=== PATIENT | female | born 1945 | race Caucasian/White ===

== ENCOUNTER → 2022-08-29 | Outpatient (CLI) | payer MEDICARE ==
[~2022-08-29] VITALS: Ht 162.6 cm; Wt 79.1 kg
[~2022-08-29] MED LIST: DONE10TA41 PO; ESCI10TA PO; FOLI1TAB7 PO; MEMA10TA57 PO; MTP25TSR PO; MV-M1TAB20 PO; TRAZ-227 PO
== END | disposition home or self-care (01) ==
LOC: PREOP 05:32
PROVIDERS: ATTEND Specialist
DX: Z01.818 Encounter for other preprocedural examination (principal)

== ENCOUNTER → 2022-09-01 | Day surgery (SDC) | payer MEDICARE ==
[~2022-09-01] VITALS: Ht 167.4 cm; Wt 68.2 kg
[~2022-09-01] MED LIST changes: +MIDAZOLAM 2 MG/2 ML (VERSED) VIAL ONE; +MOXIFLOXACIN OPHTH SOLN 5 MG/ML 0.3 ML SYRINGE OP ONE; +POVIDONE (BETADINE) OPHTH SOLN 5% 30 ML OP ONE; +TIMOLOL 0.5% (CATARACTS) 0.3 ML BTL OU PRN; +acetaZOLAMIDE ER 500 MG CAP (DIAMOX SEQUELS) PO ONE
[2022-09-01] MEDS: TETRACAINE 0.5% OPHTH SOLN 4 ML BTL (SINGLE DOSE ONLY) OU PRN ×4 (11:01→11:15)
[2022-09-01] MEDS: PHENYLEPHRINE 10% OPHTH (NEO-SYN) 5 ML BTL OU SCH ×3 (11:06→11:15)
[2022-09-01] MEDS: TROPICAMIDE 1% OPH SOLN (MYDRIACYL) 15 ML BTL OP SCH ×3 (11:06→11:15)
[2022-09-01 11:12] VITALS: BP 134/65
--- NOTE | 2022-09-01 11:46 | Ophthalmologist Pre-Op Note ---
Pre-Operative Progress Note H&P Reviewed The H&P was reviewed, patient examined and no changes noted. Date H&P Reviewed: Sep 01, 2022 Time H&P Reviewed: 11:46 Pre-Op Dx Cataract, Left Eye ASTRID BRAR MD Sep 01, 2022 11:46
--- NOTE | 2022-09-01 12:06 | Ophthalmology Operative Report ---
Cataract removal/placement IOL PREOPERATIVE DIAGNOSIS: Cataract Left Eye POSTOPERATIVE DIAGNOSIS: Cataract Left Eye PROCEDURE: Cataract removal and placement of posterior chamber implant, left eye SURGEON: Zenon Brar ANESTHESIA: Topical with sedation COMPLICATIONS: None ESTIMATED BLOOD LOSS: Minimal DESCRIPTION OF PROCEDURE: After proper informed consent was obtained, the patient, a 76 female, was taken to the Operating Room and the left eye was anesthetized with tetracaine. The left eye was then prepped and draped in the usual manner. A wire lid speculum was placed. A paracentesis was made at the left hand position. Preservative free lidocaine was injected into the anterior chamber followed by viscoelastic. A clear corneal incision was made in the temporal position. A capsulorrhexis was preformed and the central nuclear and cortical material were removed. The posterior capsule was polished and an Lincoln 26.5 AU00T0 was placed into the capsular bag. The residual viscoelastic was aspirated and balanced saline solution was injected into the anterior chamber. Moxifloxacin was injected into the anterior chamber. The wound was checked and found to be water tight. The patient tolerated the procedure well without complications. ZENON BRAR MD Sep 01, 2022 12:05
[2022-09-01 12:09] VITALS: BP 159/78
--- NOTE | 2022-09-01 12:17 | Anesthesia-General Post-Op ---
MAC Patient Condition Mental Status/LOC: Same as Preop Cardiovascular: Satisfactory Nausea/Vomiting: Absent Respiratory: Satisfactory Pain: Controlled Complications: Absent Post Op Complications Complications None Follow Up Care/Instructions Patient Instructions None needed. Anesthesiology Discharge Order Discharge Order Patient is doing well, no complaints, stable vital signs, no apparent adverse anesthesia problems. No complications reported per nursing. LANE [place] CRNA Sep 01, 2022 12:17
== END | disposition home or self-care (01) ==
LOC: SDC 10:42
PROVIDERS: ATTEND Specialist
DX: E11.36 Type 2 diabetes mellitus with diabetic cataract (principal); H25.9 Unspecified age-related cataract
CPT/HCPCS: 66984; V2632

== ENCOUNTER 2022-09-12 05:39 | Outpatient (CLI) | payer MEDICARE ==
[~2022-09-12 05:39] MED LIST changes: -MIDAZOLAM 2 MG/2 ML (VERSED) VIAL ONE; -MOXIFLOXACIN OPHTH SOLN 5 MG/ML 0.3 ML SYRINGE OP ONE; -POVIDONE (BETADINE) OPHTH SOLN 5% 30 ML OP ONE; -TIMOLOL 0.5% (CATARACTS) 0.3 ML BTL OU PRN; -acetaZOLAMIDE ER 500 MG CAP (DIAMOX SEQUELS) PO ONE
== END 2022-09-12 09:10 | disposition home or self-care (01) ==
LOC: PREOP 05:39
PROVIDERS: ATTEND Specialist
DX: Z01.818 Encounter for other preprocedural examination (principal)

== ENCOUNTER → 2022-09-26 | Outpatient (CLI) | payer MEDICARE | END | disposition home or self-care (01) | LOC: PREOP 05:33 | PROVIDERS: ATTEND Specialist | DX: Z01.818 Encounter for other preprocedural examination (principal) ==

== ENCOUNTER 2022-09-29 09:30 | Day surgery (SDC) | payer MEDICARE ==
[~2022-09-29] VITALS: Ht 162.6 cm; Wt 68.2 kg
[2022-09-29] MEDS: TETRACAINE 0.5% OPHTH SOLN 4 ML BTL (SINGLE DOSE ONLY) OU PRN ×4 (09:43→10:00)
[2022-09-29] MEDS ORDERED: POVIDONE (BETADINE) OPHTH SOLN 5% 30 ML OP ONE (09:45)
[2022-09-29] MEDS ORDERED: MOXIFLOXACIN OPHTH SOLN 5 MG/ML 0.3 ML SYRINGE OP ONE (09:45)
[2022-09-29] MEDS ORDERED: TIMOLOL 0.5% (CATARACTS) 0.3 ML BTL OU PRN (09:45)
[2022-09-29] MEDS: PHENYLEPHRINE 10% OPHTH (NEO-SYN) 5 ML BTL OU SCH ×3 (09:50→10:00)
[2022-09-29] MEDS: TROPICAMIDE 1% OPH SOLN (MYDRIACYL) 15 ML BTL OP SCH ×3 (09:50→10:01)
[2022-09-29 09:52] VITALS: BP 161/82
--- NOTE | 2022-09-29 10:29 | Ophthalmologist Pre-Op Note ---
Pre-Operative Progress Note H&P Reviewed The H&P was reviewed, patient examined and no changes noted. Date H&P Reviewed: Sep 29, 2022 Time H&P Reviewed: 10:29 Pre-Op Dx Cataract, Right Eye ASTRID BRAR MD Sep 29, 2022 10:29
[2022-09-29] MEDS ORDERED: MIDAZOLAM 2 MG/2 ML (VERSED) VIAL ONE (10:34)
--- NOTE | 2022-09-29 10:52 | Ophthalmology Operative Report ---
Cataract removal/placement IOL PREOPERATIVE DIAGNOSIS: Cataract Right Eye POSTOPERATIVE DIAGNOSIS: Cataract Right Eye PROCEDURE: Cataract removal and placement of posterior chamber implant, right eye SURGEON: Zenon Brar ANESTHESIA: Topical with sedation COMPLICATIONS: None ESTIMATED BLOOD LOSS: Minimal DESCRIPTION OF PROCEDURE: After proper informed consent was obtained, the patient, a 77 female, was taken to the Operating Room and the right eye was anesthetized with tetracaine. The right eye was then prepped and draped in the usual manner. A wire lid speculum was placed. A paracentesis was made at the left hand position. Preservative free lidocaine was injected into the anterior chamber followed by viscoelastic. A clear corneal incision was made in the temporal position. A capsulorrhexis was preformed and the central nuclear and cortical material were removed. The posterior capsule was polished and Lincoln 25.5 AU00T0 IOL was placed into the capsular bag. The residual viscoelastic was aspirated and balanced saline solution was injected into the anterior chamber. Moxifloxacin was injected into the anterior chamber. The wound was checked and found to be water tight. The patient tolerated the procedure well without complications. ZENON BRAR MD Sep 29, 2022 10:52
[2022-09-29 10:54] VITALS: BP 161/79
--- NOTE | 2022-09-29 11:51 | Anesthesia-General Post-Op ---
MAC Patient Condition Mental Status/LOC: Same as Preop Cardiovascular: Satisfactory Nausea/Vomiting: Absent Respiratory: Satisfactory Pain: Controlled Complications: Absent Post Op Complications Complications None Follow Up Care/Instructions Patient Instructions None needed. Anesthesiology Discharge Order Discharge Order Patient is doing well, no complaints, stable vital signs, no apparent adverse anesthesia problems. No complications reported per nursing. JESE SETH CRNA Sep 29, 2022 11:51
[2022-09-29] MEDS ORDERED: acetaZOLAMIDE ER 500 MG CAP (DIAMOX SEQUELS) PO ONE (13:00)
== END 2022-09-29 10:55 ==
LOC: SDC 09:30
PROVIDERS: ATTEND Specialist
DX: H26.9 Unspecified cataract (principal); E11.9 Type 2 diabetes mellitus without complications
CPT/HCPCS: 66984; V2632

== ENCOUNTER 2022-12-28 08:42 | Inpatient (IN) | payer MEDICARE ==
[~2022-12-28] VITALS: Ht 172 cm; Wt 88.0 kg
[2022-12-28 09:01] LABS: BASOPHILS # (AUTO) 0.1 10^3/uL (0.0-0.1); BASOPHILS % (AUTO) 1 % (0-10); EOSINOPHILS % (AUTO) 0 % (0-10); HEMATOCRIT 37 % (35-52); HEMOGLOBIN 12.2 g/dL (11.5-16.0); LYMPHOCYTES # (AUTO) 2.3 10^3/uL (1.0-4.0); LYMPHOCYTES % (AUTO) 25 % (12-44); MEAN CORPUSCULAR HEMOGLOBIN 31 pg (25-34); MEAN CORPUSCULAR HGB CONC 33 g/dL (32-36); MEAN CORPUSCULAR VOLUME 94 fL (80-99); MEAN PLATELET VOLUME 10.8 fL (9.0-12.2); MONOCYTES # (AUTO) 0.5 10^3/uL (0.0-1.0); MONOCYTES % (AUTO) 5 % (0-12); NEUTROPHILS # (AUTO) 6.3 10^3/uL (1.8-7.8); NEUTROPHILS % (AUTO) 69 % (42-75); PLATELET COUNT 254 10^3/uL (130-400); WHITE BLOOD COUNT 9.1 10^3/uL (4.3-11.0)
--- NOTE | 2022-12-28 09:09 | ED General ---
General Chief Complaint: Altered Mental Status Stated Complaint: UNRESPONSIVE Nursing Triage Note: PT ARRIVED PER EMS, PT WAS FOUND UNRESP AT [facility]. PT IS ALERT PER SELF, PT HAS HX DEMENTIA. PT A/C OFF AT FACILITY. TEMP 100.5 AT [facility]. TEMP 37.7 AT THIS X. PT HAS #18 JELCO IN AC. PT SKIN IS WARM TO TOUCH. PT DENIES PAIN AT THIS X. PT LAST KNOWN WELL TIME 1999 LAST PM Source of Information: Patient Exam Limitations: Other History of Present Illness Date Seen by Provider: Dec 28, 2022 Time Seen by Provider: 08:38 Initial Comments This 77-year-old woman presents to the emergency room via EMS from the [facility]. She was found essentially unresponsive by staff this morning. Last known well time was about 1999 last night. Apparently the air conditioning unit in her apartment is broken. EMS estimated that the temperature in her apartment was over 100 F even with the door open. Patient was very warm to the touch per staff. EMS had a temperature of 100.5. She was tachycardic with sinus tachycardia at a rate of about 140 and a blood pressure of 88/50 for EMS. Patient has dementia and does not contribute much to her history. She has no complaints at this time. She has dry mucous membranes. She is disoriented but is alert and responsive. Blood sugar for EMS was in the 200s. Blood sugar here is 173. Allergies and Home Medications Allergies Coded Allergies: No Known Drug Allergies (Unverified , 09/01/22) Patient Home Medication List Home Medication List Reviewed: Yes Cholecalciferol (Vitamin D3) (Vitamin D3) 50 Mcg (2000 Unit) Tablet, 50 MCG PO DAILY, (Reported) Entered as Reported by: GALLITO SEGURA on 12/28/22 1440 Last Action: Reviewed Donepezil HCl (Donepezil HCl) 10 Mg Tablet, 10 MG PO DAILY, (Reported) Entered as Reported by: TITUS FORDE on 08/30/22 1250 Last Action: Reviewed Escitalopram Oxalate (Lexapro) 10 Mg Tablet, 10 MG PO DAILY, (Reported) Entered as Reported by: TITUS FORDE on 08/30/22 1250 Last Action: Reviewed Eyelid Cleanser Combination #5 (Ocusoft Lid Scrub) 1 Each Med..pad, 1 EACH TP BID, (Reported) Entered as Reported by: GALLITO SEGURA on 12/28/221439 Last Action: Reviewed Memantine HCl (Memantine HCl) 10 Mg Tablet, 10 MG PO BID, (Reported) Entered as Reported by: TITUS FORDE on 08/30/221249 Last Action: Reviewed Metoprolol Succinate (Metoprolol Succinate) 25 Mg Tab.er.24h, 25 MG PO DAILY, (Reported) Entered as Reported by: TITUS FORDE on 08/30/221249 Last Action: Reviewed Multivit-Min/FA/Lycopene/Lut (Centrum Silver Tablet) 0.4 Mg-300 Mcg-250 Mcg Tablet, 1 EACH PO DAILY, (Reported) Entered as Reported by: GALLITO SEGURA on 12/28/221439 Last Action: Reviewed Phenylephrine/Dm/Acetaminop/GG (Tylenol Cold & Flu Severe Cplt) 5 Mg-10 Mg-325 Mg-200 Mg Tablet, 2 EACH PO Q4H PRN for COLD, (Reported) Entered as Reported by: GALLITO SEGURA on 12/28/221439 Last Action: Reviewed Polyvinyl Alcohol/Povidone/Pf (Refresh Classic Eye Drops) 1.4 %-0.6 % Droperette, 1 EACH OU BID, (Reported) Entered as Reported by: GALLITO SEGURA on 12/28/221439 Last Action: Reviewed Propylene Glycol (Systane Complete) 0.6 % Drops, 2 DROPS OU BID, (Reported) Entered as Reported by: GALLITO SEGURA on 12/28/221439 Last Action: Reviewed Trazodone HCl (Trazodone HCl) 100 Mg Tablet, 100 MG PO HS, (Reported) Entered as Reported by: TITUS FORDE on 08/30/221249 Last Action: Reviewed Discontinued Medications Folic Acid/Multivit-Min/Lutein (Centrum Silver Chewable Tablet) 400 Mcg-250 Mcg Tab.chew, 1 EACH PO DAILY, (Reported) Discontinued Reason: Prescription changed Entered as Reported by: TITUS FORDE on 08/30/221249 Mv-Mn/Iron/FA/Herbal Cmplx#190 (Vitamin D3 Complete Caplet) 18 Mg Iron-800 Mcg- 150 Mg Tablet, 1 EACH PO DAILY, (Reported) Discontinued Reason: Prescription changed Entered as Reported by: TITUS FORDE on 08/30/22 1250 Review of Systems Review of Systems Constitutional: see HPI EENTM: no symptoms reported Respiratory: no symptoms reported Cardiovascular: see HPI Gastrointestinal: no symptoms reported Genitourinary: no symptoms reported Musculoskeletal: no symptoms reported Skin: no symptoms reported Psychiatric/Neurological: See HPI Hematologic/Lymphatic: No Symptoms Reported Past Ozhrwrq-Xtgauf-Uvtcwg Hx Patient Social History Tobacco Use?: No Use of E-Cig and/or Vaping dev: No Alcohol Use?: No Past Medical History Surgeries: Yes Eye Surgery (Cataract), Tonsillectomy Respiratory: No Cardiac: Yes Hypertension Neurological: Yes Dementia : No Genitourinary: No Gastrointestinal: No Musculoskeletal: No Endocrine: Yes Diabetes, Non-Insulin dep HEENT: No Cancer: No Psychosocial: No Integumentary: No Physical Exam-Suspected Sepsis Physical Exam Vital Signs Vital Signs - First Documented 12/28/22 12/28/22 12/28/22 08:42 11:45 15:22 Temp 39.5 Pulse 107 Resp 11 B/P (MAP) 86/55 (65) Pulse Ox 95 O2 Delivery Room Air O2 Flow Rate 10.00 FiO2 40 Capillary Refill : Less Than 3 Seconds Blood Pressure Mean: 65 Height, Weight, BMI Height: '" Weight: lbs. oz. kg; 29.00 BMI Method: General Appearance: No Apparent Distress, WD/WN HEENT: PERRL/EOMI, Normal ENT Inspection, Other (Dry oropharynx) Neck: Normal Inspection Respiratory: No Accessory Muscle Use, No Respiratory Distress, Crackles (Right base); No Wheezing Cardiovascular: No Edema, No Murmur, Tachycardia Gastrointestinal: Non Tender, Soft; No Distended Extremity: Normal Inspection, Non Tender Neurologic/Psychiatric: Alert, No Motor/Sensory Deficits, Normal Mood/Affect, Disoriented Skin: normal color, warm/dry Focused Exam Lactate Level 12/28/22 08:45: Lactic Acid Level 2.06*H 12/28/22 10:46: Lactic Acid Level 0.73 Lactic Acid Level Progress/Results/Core Measures Suspected Sepsis SIRS Temperature: Pulse: 107 Respiratory Rate: 11 Laboratory Tests 12/28/22 08:45: White Blood Count 9.1 Blood Pressure 86 /55 Mean: 65 12/28/22 08:45: Lactic Acid Level 2.06*H 12/28/22 10:46: Lactic Acid Level 0.73 Laboratory Tests 12/28/22 08:45: Creatinine 2.03H, INR Comment 1.0, Platelet Count 254, Total Bilirubin 0.3 Results/Orders Lab Results Laboratory Tests Test 12/28/22 08:45 12/28/22 08:50 12/28/22 09:00 12/28/22 10:46 Range/Units White Blood Count 9.1 4.3-11.0 10^3/uL Red Blood Count 3.97 3.80-5.11 10^6/uL Hemoglobin 12.2 11.5-16.0 g/dL Hematocrit 37 35-52 % Mean Corpuscular Volume 94 80-99 fL Mean Corpuscular Hemoglobin 31 25-34 pg Mean Corpuscular Hemoglobin Concent 33 32-36 g/dL Red Cell Distribution Width 13.2 10.0-14.5 % Platelet Count 254 130-400 10^3/uL Mean Platelet Volume 10.8 9.0-12.2 fL Immature Granulocyte % (Auto) 0 % Neutrophils (%) (Auto) 69 42-75 % Lymphocytes (%) (Auto) 25 12-44 % Monocytes (%) (Auto) 5 0-12 % Eosinophils (%) (Auto) 0 0-10 % Basophils (%) (Auto) 1 0-10 % Neutrophils # (Auto) 6.3 1.8-7.8 10^3/uL Lymphocytes # (Auto) 2.3 1.0-4.0 10^3/uL Monocytes # (Auto) 0.5 0.0-1.0 10^3/uL Eosinophils # (Auto) 0.0 0.0-0.3 10^3/uL Basophils # (Auto) 0.1 0.0-0.1 10^3/uL Immature Granulocyte # (Auto) 0.0 0.0-0.1 10^3/uL Prothrombin Time 13.7 12.2-14.7 SEC INR Comment 1.0 0.8-1.4 Activated Partial Thromboplast Time 26 24-35 SEC Sodium Level 141 135-145 MMOL/L Potassium Level 4.5 3.6-5.0 MMOL/L Chloride Level 110 H 98-107 MMOL/L Carbon Dioxide Level 20 L 21-32 MMOL/L Anion Gap 11 5-14 MMOL/L Blood Urea Nitrogen 24 H 7-18 MG/DL Creatinine 2.03 H 0.60-1.30 MG/DL Estimat Glomerular Filtration Rate 25 BUN/Creatinine Ratio 12 Glucose Level 178 H 70-105 MG/DL Lactic Acid Level 2.06 *H 0.73 0.50-2.00 MMOL/L Calcium Level 9.4 8.5-10.1 MG/DL Corrected Calcium 9.2 8.5-10.1 MG/DL Magnesium Level 2.2 1.6-2.4 MG/DL Total Bilirubin 0.3 0.1-1.0 MG/DL Aspartate Amino Transf (AST/SGOT) 29 5-34 U/L Alanine Aminotransferase (ALT/SGPT) 31 0-55 U/L Alkaline Phosphatase 63 40-136 U/L Total Creatine Kinase 79 29-168 U/L C-Reactive Protein High Sensitivity 0.05 0.00-0.50 MG/DL Total Protein 7.7 6.4-8.2 GM/DL Albumin 4.3 3.2-4.5 GM/DL Glucometer 173 H 70-110 MG/DL Urine Color YELLOW Urine Clarity CLEAR Urine pH 8.0 5-9 Urine Specific Sharon 1.015 L 1.016-1.022 Urine Protein NEGATIVE NEGATIVE Urine Glucose (UA) NEGATIVE NEGATIVE Urine Ketones NEGATIVE NEGATIVE Urine Nitrite NEGATIVE NEGATIVE Urine Bilirubin NEGATIVE NEGATIVE Urine Urobilinogen 0.2 < = 1.0 MG/DL Urine Leukocyte Esterase NEGATIVE NEGATIVE Urine RBC (Auto) NEGATIVE NEGATIVE Urine RBC NONE /HPF Urine WBC NONE /HPF Urine Crystals NONE /LPF Urine Bacteria NEGATIVE /HPF Urine Casts NONE /LPF Urine Mucus NEGATIVE /LPF Urine Culture Indicated NO My Orders Orders - KATRIN FLORES MD Cbc With Automated Diff (12/28/22 08:47) Comprehensive Metabolic Panel (12/28/22 08:47) Blood Culture (12/28/22 08:47) Sputum Culture (12/28/22 08:47) Urinalysis (12/28/22 08:47) Urine Culture (12/28/22 08:47) Protime With Inr (12/28/22 08:47) Partial Thromboplastin Time (12/28/22 08:47) Chest 1 View, Ap/Pa Only (12/28/22 08:47) Ed Iv/Invasive Line Start (12/28/22 08:47) Vital Signs Adult Sepsis Patie Q15M (12/28/22 08:47) O2 (12/28/22 08:47) Remove Rings In Anticipation O (12/28/22 08:47) Lactic Acid Analyzer (12/28/22 08:47) Creatine Kinase (12/28/22 08:47) Hs C Reactive Protein (12/28/22 08:47) Magnesium (12/28/22 08:47) Ns Iv 1000 Ml (Sodium Chloride 0.9%) (12/28/22 10:00) Ns Iv 1000 Ml (Sodium Chloride 0.9%) (12/28/22 09:47) Ed Admission (Communication) (12/28/22 10:24) Vital Signs/I&O 12/28/22 12/28/22 12/28/22 12/28/22 08:42 11:20 11:45 11:47 Temp 39.5 36.2 Pulse 107 77 78 81 Resp 11 14 B/P (MAP) 86/55 (65) 92/54 96/50 (65) Pulse Ox 95 92 92 O2 Delivery Room Air High Flow N/C O2 Flow Rate 10.00 12/28/22 12/28/22 12/28/22 12/28/22 12:00 12:30 13:00 13:05 Pulse 79 79 76 73 B/P (MAP) 93/48 (63) 88/46 (60) 105/53 (70) Pulse Ox 92 92 91 O2 Delivery High Flow N/C High Flow N/C Room Air O2 Flow Rate 10.00 10.00 12/28/22 12/28/22 12/28/22 12/28/22 13:30 13:52 14:00 14:30 Pulse 73 71 66 B/P (MAP) 112/57 (75) 110/52 (89) 93/51 (65) Pulse Ox 94 92 93 O2 Delivery Room Air Room Air Room Air Room Air O2 Flow Rate 12/28/22 12/28/22 12/28/22 12/28/22 15:00 15:22 16:00 17:00 Pulse 64 66 64 73 B/P (MAP) 98/54 (69) 111/55 (73) 128/66 (86) Pulse Ox 94 93 95 96 O2 Delivery Room Air Room Air Room Air O2 Flow Rate FiO2 40 12/28/22 12/28/22 18:00 18:49 Temp 36.8 Pulse 66 66 B/P (MAP) 92/83 (86) 112/63 (79) Pulse Ox 95 95 O2 Delivery Room Air Room Air O2 Flow Rate Capillary Refill : Less Than 3 Seconds Blood Pressure Mean: 65 Progress Note #1: Time: 09:13 Progress Note Patient has tachycardia and hypotension. She likely has sepsis versus dehydration from heat exposure. Labs are pending. A liter of normal saline is infusing as started by EMS. Rectal temperature was 39.5. We will continue to monitor and check after 2 L of IV fluid. If she remains febrile after hydration and resting in a cool environment, that would increase suspicion of infection rather than exposure as the cause of her hyperthermia. Progress Note #2: Time: 10:17 Progress Note Labs were all reviewed and interpreted by me including CBC, CMP, CRP, CK, magnesium, and urinalysis. Creatinine was elevated above 2. Her baseline according to the clinic is 1.3. This represents acute kidney injury. The remainder of the labs are relatively unremarkable. There is no evidence of infection on labs or chest x-ray. Patient remains happy and alert. After 1 L of IV fluid she is still hypotensive. We are giving a second liter of IV normal saline and will monitor progress. Patient should be admitted for further hydration, monitoring of labs, and vital signs monitoring. Case has been discussed with Dr. Weaver, admitting hospitalist. Patient is full code according to her [facility] paperwork. I also reviewed the case with Dr. Brown as trauma surgeon on-call. Although her conditions are exposure based w hich is technically considered trauma related, she does not need an inpatient trauma consultation based on her current status. Diagnostic Imaging Diagonstic Imaging: Xray Plain Films/CT/US/NM/MRI: chest Comments NAME: DEEJAY THOMPSON MED REC#: [id number] PT STATUS: REG ER : 1945 PHYSICIAN: KATRIN FLORES MD ADMIT DATE: 12/28/22/ER Draft Date of Exam:12/28/22 CHEST 1 VIEW, AP/PA ONLY INDICATION: Altered mental status Portable chest 9:10 AM Heart size and pulmonary vascularity are normal. Lungs are clear. There are no effusions or pneumothoraces. IMPRESSION: Negative chest Dictated on workstation # [id number] Dict: 12/28/22925 Trans: 12/28/22927 [facility] [id number] Interpreted by: ANDER INTERIANO MD Departure Communication (Admissions) Time/Spoke to Admitting Phy: 10:05 Dr. Weaver Impression Primary Impression: Acute kidney injury Additional Impressions: Hypovolemia due to dehydration Hypotension due to hypovolemia Hypothermia due to exposure Hyperthermia associated with heat Disposition: ADMITTED INPATIENT Condition: Improved Admissions Decision to Admit Reason: Admit from ER (General) Decision to Admit/Date: Dec 28, 2022 Time/Decision to Admit Time: 10:05 Departure-Patient Inst. Referrals: KAN FALK DO (PCP/Family) Primary Care Physician Copy Copies To 1: KAN FALK JOSHUA T MD Dec 28, 2022 09:09
[2022-12-28 09:11] LABS: ALBUMIN 4.3 GM/DL (3.2-4.5); POTASSIUM 4.5 MMOL/L (3.6-5.0)
[2022-12-28 09:12] LABS: CALCIUM 9.4 MG/DL (8.5-10.1)
[2022-12-28 09:13] LABS: PROTHROMBIN TIME PATIENT 13.7 SEC (12.2-14.7)
[2022-12-28 09:14] LABS: TOTAL PROTEIN 7.7 GM/DL (6.4-8.2)
[2022-12-28 09:15] LABS: BILIRUBIN,TOTAL 0.3 MG/DL (0.1-1.0)
[2022-12-28 09:17] LABS: CREATININE SERUM 2.03 MG/DL (0.60-1.30)
[2022-12-28 09:19] LABS: BILIRUBIN,URINE NEGATIVE (NEGATIVE); CLARITY,URINE CLEAR; COLOR,URINE YELLOW; GLUCOSE, URINE (UA) NEGATIVE (NEGATIVE); KETONES,URINE NEGATIVE (NEGATIVE); LEUKOCYTE ESTERASE ,URINE NEGATIVE (NEGATIVE); NITRITE,URINE NEGATIVE (NEGATIVE); PROTEIN,URINE NEGATIVE (NEGATIVE)
[2022-12-28 09:20] LABS: MAGNESIUM 2.2 MG/DL (1.6-2.4)
[2022-12-28 09:26] LABS: BACTERIA,URINE NEGATIVE /HPF
--- NOTE | 2022-12-28 09:28 | Diagnostic Imaging Report ---
INDICATION: Altered mental status Portable chest 9:10 AM Heart size and pulmonary vascularity are normal. Lungs are clear. There are no effusions or pneumothoraces. IMPRESSION: Negative chest Dictated by: Dictated on workstation # [id number]
[2022-12-28] MEDS ORDERED: NS IV 1000 ML 1,000 ML ONE (09:47)
[2022-12-28] MEDS ORDERED: NS IV 1000 ML 1,000 ML IV SCH (10:00)
--- NOTE | 2022-12-28 10:25 | History & Physical ---
History of Present Illness HPI/Chief Complaint Chief complaint: Heat exposure with acute kidney injury and hypotension HPI: This is a 77-year-old female clinic patient of Dr. Arroyo who lives at [facility] living who was found to be in her apartment and it was nearly 100 degrees and she was with confusion and obvious dehydration hyperthermia. She was found to have acute kidney injury and hypotension requiring IV fluids and ICU admission. She does have dementia but she is reporting that she is feeling much better. No evidence of any source of sepsis. It appears that she had the heat on instead of the air conditioner. Source: patient Exam Limitations: clinical condition (Dementia) Date Seen 12/28/22 Time Seen by a Provider: 12:00 Attending Physician Danika Arroyo DO PCP Admitting Physician: Attending Physician: Referring Physician Date of Admission Home Medications & Allergies Home Medications Reviewed patient Home Medication Reconciliation performed by pharmacy medication reconciliations sewer and drain technician and/or nursing. Patients Allergies have been reviewed. Allergies Allergies Coded Allergies No Known Drug Allergies (Unverified09/01/22) Past Asksfly-Zortpu-Qggwyh Hx Past Med/Social Hx: Reviewed Nursing Past Med/Soc Hx, Reviewed and Corrections made Patient Social History Marrital Status: single Employed/Student: retired Alcohol Use: Denies Use Smoking Status: Never a Smoker Past Medical History Surgeries: Eye Surgery (Cataract), Tonsillectomy Cardiac: Hypertension Neurological: Dementia : No Endocrine: Diabetes, Non-Insulin dep Review of Systems ROS-Unable to Obtain: Confusion Constitutional: see HPI Physical Exam Physical Exam Vital Signs Vital Signs - First Documented 12/28/22 12/28/22 12/28/22 08:42 11:45 15:22 Temp 39.5 Pulse 107 Resp 11 B/P (MAP) 86/55 (65) Pulse Ox 95 O2 Delivery Room Air O2 Flow Rate 10.00 FiO2 40 Capillary Refill : Less Than 3 Seconds Height, Weight, BMI Height: '" Weight: lbs. oz. kg; 29.00 BMI Method: General Appearance: No Apparent Distress, WD/WN, Chronically ill HEENT: PERRL/EOMI, Normal ENT Inspection, Other (Dry oropharynx) Neck: Normal Inspection Respiratory: No Accessory Muscle Use, No Respiratory Distress, Crackles (Right base); No Wheezing Cardiovascular: No Edema, No Murmur, Tachycardia Gastrointestinal: Non Tender, Soft; No Distended Extremity: Normal Inspection, Non Tender Neurologic/Psychiatric: Alert, No Motor/Sensory Deficits, Normal Mood/Affect, Disoriented Results Results/Procedures Labs Laboratory Tests 12/28/22 08:45 Patient resulted labs reviewed. Assessment/Plan Admission Diagnosis Assessment: Heat exposure Altered mental status Hypotension Dementia Acute kidney injury Hyperthermia Diabetes History of hypertension Plan: IV fluids ICU May need pressor therapy Monitor closely Hold home meds for hypertension Admission Status: Inpatient Order (span 2 midnights) Reason for Inpatient Admission: Acute kidney injury with hyperthermia and heat exposure DORI OSCAR DO Dec 28, 2022 10:25
--- NOTE | 2022-12-28 11:54 | Tele-ICU Progress Note ---
Subjective Date Seen by a Provider: Dec 28, 2022 Subjective/Events-last exam This virtual visit was conducted using real time audio/video. Thank you for asking us to see this patient for critical care services due to elevated temp, tachycardia and hypotension. Rule out sepsis. Recent events: PMH:dementia, lives at assisted living. Air conditioning was not functioning. PE: Appears comfortable, pale. VSS. O2 sat 95% on RA HEENT: No obvious masses, adenopathy or JVD. Chest: clear to auscultation. CV: RRR S1 S2 No murmur or added sounds. Abd: Non-tender. Bowel sounds Y. : Unremarkable. Lo N. RN DOCUMENT IMPROVEMENT/psychiatric: Grossly intact. No obvious focal findings. Extremities: No edema. Capillary refill < 3 seconds. Skin: unremarkable. Results: Elevated .BUN 24, Creat 2.03, BG 178. Lactate normalized. CXR: Clear napier.. Available chart/ vitals / labs / images reviewed. Video assessment done using teleICU camera, rest of exam as per RN. A/P: Critical Care: critically ill patient. Cont. IVF, monitor for recurrent hypotension. Discussed with RN Ray. Asked RN to reach out to eICU if any questions or concerns later. Time spent with patient/coordination of care with other health professionals (mins): 20 Sepsis Event Evaluation Height, Weight, BMI Height: '" Weight: lbs. oz. kg; 29.00 BMI Method: Focused Exam Lactate Level 12/28/22 08:45: Lactic Acid Level 2.06*H 12/28/22 10:46: Lactic Acid Level 0.73 Lactic Acid Level Laboratory Tests Test 12/28/22 08:45 12/28/22 10:46 Lactic Acid Level 2.06 MMOL/L (0.50-2.00) *H 0.73 MMOL/L (0.50-2.00) Exam Exam Patient acknowledged, consented, and participated in this virtual visit which was conducted using real time audio/video Vital Signs Date Time Temp Pulse Resp B/P (MAP) Pulse Ox O2 Delivery O2 Flow Rate FiO2 12/28/22 11:20 36.2 77 14 92/54 92 12/28/22 08:42 39.5 107 11 86/55 (65) 95 Room Air Height & Weight Height: '" Weight: lbs. oz. kg; 29.00 BMI Method: General Appearance: No Apparent Distress, WD/WN HEENT: PERRL/EOMI, Normal ENT Inspection, Other (Dry oropharynx) Neck: Normal Inspection Respiratory: No Accessory Muscle Use, No Respiratory Distress, Crackles (Right base); No Wheezing Cardiovascular: No Edema, No Murmur, Tachycardia Capillary Refill: Less Than 3 Seconds Extremity: Normal Inspection, Non Tender Neurologic/Psychiatric: Alert, No Motor/Sensory Deficits, Normal Mood/Affect, Disoriented Results Lab Laboratory Tests 12/28/22 08:45 Assessment/Plan Assessment/Plan See free text Critical Care: Critically Ill Patient YAMILETH GIBSON MD Dec 28, 2022 11:54
[2022-12-28] MEDS ORDERED: ACETAMINOPHEN 325 MG TABLET PO PRN ×2 (12:45)
[2022-12-28] MEDS ORDERED: diphenhydrAMINE 25 MG TAB (BENADRYL) PO PRN (12:45)
[2022-12-28] MEDS ORDERED: polyethylene glycoL POWDER 17 GM (MIRALAX) PACK PO PRN ×2 (12:45)
[2022-12-28] MEDS ORDERED: NS IV 500 ML 500 ML IV PRN ×2 (12:45)
[2022-12-28] MEDS ORDERED: LACTULOSE SYRUP 10GM/15ML (ENULOSE) 30ML UDC PO PRN ×2 (12:45)
[2022-12-28] MEDS ORDERED: diphenhydrAMINE 50 MG/ML INJ (BENADRYL) IVP PRN ×2 (12:45)
[2022-12-28] MEDS ORDERED: BISACODYL 10 MG SUPP (DULCOLAX) PR PRN ×2 (12:45)
[2022-12-28] MEDS ORDERED: ANTACID SUSP 30 ML UDC (MYLANTA) PO PRN ×2 (12:45)
[2022-12-28] MEDS ORDERED: ONDANSETRON 4 MG (ZOFRAN) ORAL DISSOLVE TAB PO PRN ×2 (12:45)
[2022-12-28] MEDS ORDERED: MELATONIN 3 MG TABLET PO PRN ×2 (12:45)
[2022-12-28] MEDS ORDERED: CALCIUM CARBONATE 500 MG (TUMS) TAB.CHEW PO PRN ×2 (12:45)
[2022-12-28] MEDS ORDERED: ONDANSETRON 4 MG/2 ML (SDV) Z0FRAN IV PRN (12:45)
[2022-12-28] MEDS: NS IV 1000 ML 1,000 ML IV SCH ×5 (12:45→21:52)
[2022-12-28] MEDS ORDERED: morphine INJ 4 MG/ML 1 ML (VIAL/SYRINGE) IV PRN (12:45)
[2022-12-28] MEDS ORDERED: MILK OF MAGNESIA 400 MG/5 ML 30 ML UDC PO PRN ×2 (12:45)
[2022-12-28] MEDS ORDERED: CHOL200059 PO (14:40)
[2022-12-28] MEDS ORDERED: PHEN-574 PO (14:40)
[2022-12-28] MEDS ORDERED: POLY1DRO OU (14:40)
[2022-12-28] MEDS ORDERED: EYEL1MED TP (14:40)
[2022-12-28] MEDS ORDERED: MULT-1029 PO (14:40)
[2022-12-28] MEDS ORDERED: PROP1.5D OU (14:40)
[2022-12-28 15:22] VITALS: BP 93/51
[2022-12-28] MEDS ORDERED: RT-ALBUTEROL/IPRATROPIUM 3 ML (DUONEB) VIAL INH PRN (15:30)
[2022-12-28] MEDS ORDERED: DOCUSATE SODIUM 100 MG (COLACE) CAP PO SCH (21:00)
[2022-12-28] MEDS ORDERED: SENNOSIDES 8.6 MG (SENOKOT) TAB PO SCH (21:00)
[2022-12-28] MEDS: DOCUSATE SODIUM 100 MG (COLACE) CAP PO SCH (21:20)
[2022-12-28] MEDS: SENNOSIDES 8.6 MG (SENOKOT) TAB PO SCH (21:21)
[2022-12-29 04:54] LABS: BASOPHILS % (AUTO) 1 % (0-10); EOSINOPHILS # (AUTO) 0.2 10^3/uL (0.0-0.3); EOSINOPHILS % (AUTO) 2 % (0-10); HEMATOCRIT 28 % (35-52); LYMPHOCYTES % (AUTO) 25 % (12-44); MEAN CORPUSCULAR HEMOGLOBIN 31 pg (25-34); MEAN CORPUSCULAR HGB CONC 32 g/dL (32-36); MEAN CORPUSCULAR VOLUME 96 fL (80-99); MONOCYTES # (AUTO) 0.9 10^3/uL (0.0-1.0); MONOCYTES % (AUTO) 12 % (0-12); NEUTROPHILS # (AUTO) 4.8 10^3/uL (1.8-7.8); NEUTROPHILS % (AUTO) 60 % (42-75); PLATELET COUNT 153 10^3/uL (130-400)
[2022-12-29 05:04] LABS: ALBUMIN 3.1 GM/DL (3.2-4.5); POTASSIUM 4.2 MMOL/L (3.6-5.0)
[2022-12-29 05:05] LABS: CALCIUM 7.8 MG/DL (8.5-10.1)
[2022-12-29 05:07] LABS: TOTAL PROTEIN 5.5 GM/DL (6.4-8.2)
[2022-12-29 05:09] LABS: BILIRUBIN,TOTAL 0.4 MG/DL (0.1-1.0)
[2022-12-29 05:10] LABS: CREATININE SERUM 1.14 MG/DL (0.60-1.30); PHOSPHORUS 3.7 MG/DL (2.3-4.7)
[2022-12-29 05:13] LABS: MAGNESIUM 1.9 MG/DL (1.6-2.4)
[2022-12-29] MEDS: NS IV 1000 ML 1,000 ML IV SCH (05:25)
[2022-12-29] MEDS: MAGNESIUM 1 GM/100 ML IVPB 100 ML IV SCH (05:30)
[2022-12-29] MEDS ORDERED: MAGNESIUM 1 GM/100 ML IVPB 100 ML IV SCH ×2 (06:00)
[2022-12-29] MEDS ORDERED: POTASSIUM CL 10MEQ/50ML IVPB 50 ML IV SCH ×2 (06:00)
[2022-12-29] MEDS ORDERED: KCL 20 MEQ TAB (K-DUR) PO SCH ×2 (06:00)
[2022-12-29] MEDS: DOCUSATE SODIUM 100 MG (COLACE) CAP PO SCH (08:25)
[2022-12-29] MEDS: SENNOSIDES 8.6 MG (SENOKOT) TAB PO SCH (08:25)
--- NOTE | 2022-12-29 08:35 | Progress Note ---
Subjective Date Seen by a Provider: Dec 29, 2022 Time Seen by a Provider: 11:00 Focused Exam Lactate Level 12/28/22 08:45: Lactic Acid Level 2.06*H 12/28/22 10:46: Lactic Acid Level 0.73 Objective Exam Last Set of Vital Signs Vital Signs Date Time Temp Pulse Resp B/P (MAP) Pulse Ox O2 Delivery O2 Flow Rate FiO2 12/29/22 07:50 36.8 12/29/22 07:48 91 Room Air 12/29/22 06:00 60 129/64 (85) 12/28/22 18:00 12/28/22 15:22 40 12/28/22 11:20 14 Capillary Refill : Less Than 3 Seconds I&O Intake and Output 12/29/22 00:00 Intake Total 3920 ml Output Total 700 ml Balance 3220 ml Intake Oral 870 ml IV Total 3050 ml Output Urine Total 700 ml Results Lab Laboratory Tests 12/28/22 08:45: White Blood Count 9.1, Red Blood Count 3.97, Hemoglobin 12.2, Hematocrit 37, Mean Corpuscular Volume 94, Mean Corpuscular Hemoglobin 31, Mean Corpuscular Hemoglobin Concent 33, Red Cell Distribution Width 13.2, Platelet Count 254, Mean Platelet Volume 10.8, Immature Granulocyte % (Auto) 0, Neutrophils (%) (Auto) 69, Lymphocytes (%) (Auto) 25, Monocytes (%) (Auto) 5, Eosinophils (%) (Auto) 0, Basophils (%) (Auto) 1, Neutrophils # (Auto) 6.3, Lymphocytes # (Auto) 2.3, Monocytes # (Auto) 0.5, Eosinophils # (Auto) 0.0, Basophils # (Auto) 0.1, Immature Granulocyte # (Auto) 0.0, Prothrombin Time 13.7, INR Comment 1.0, Activated Partial Thromboplast Time 26, Sodium Level 141, Potassium Level 4.5, Chloride Level 110H, Carbon Dioxide Level 20L, Anion Gap 11, Blood Urea Nitrogen 24H, Creatinine 2.03H, Estimat Glomerular Filtration Rate 25, BUN/Creatinine Ratio 12, Glucose Level 178H, Lactic Acid Level 2.06*H, Calcium Level 9.4, Corrected Calcium 9.2, Magnesium Level 2.2, Total Bilirubin 0.3, Aspartate Amino Transf (AST/SGOT) 29, Alanine Aminotransferase (ALT/SGPT) 31, Alkaline Phosphatase 63, Total Creatine Kinase 79, C-Reactive Protein High Sensitivity 0.05, Total Protein 7.7, Albumin 4.3 12/28/22 08:50: Glucometer 173H 12/28/22 09:00: Urine Color YELLOW, Urine Clarity CLEAR, Urine pH 8.0, Urine Specific [place] 1.015L, Urine Protein NEGATIVE, Urine Glucose (UA) NEGATIVE, Urine Ketones NEGATIVE, Urine Nitrite NEGATIVE, Urine Bilirubin NEGATIVE, Urine Urobilinogen 0.2, Urine Leukocyte Esterase NEGATIVE, Urine RBC (Auto) NEGATIVE, Urine RBC NONE, Urine WBC NONE, Urine Crystals NONE, Urine Bacteria NEGATIVE, Urine Casts NONE, Urine Mucus NEGATIVE, Urine Culture Indicated NO 12/28/22 10:46: Lactic Acid Level 0.73 12/29/22 04:26: White Blood Count 8.0, Red Blood Count 2.94L, Hemoglobin 9.0#L, Hematocrit 28L, Mean Corpuscular Volume 96, Mean Corpuscular Hemoglobin 31, Mean Corpuscular Hemoglobin Concent 32, Red Cell Distribution Width 13.5, Platelet Count 153, Mean Platelet Volume 11.0, Immature Granulocyte % (Auto) 0, Neutrophils (%) (Auto) 60, Lymphocytes (%) (Auto) 25, Monocytes (%) (Auto) 12, Eosinophils (%) (Auto) 2, Basophils (%) (Auto) 1, Neutrophils # (Auto) 4.8, Lymphocytes # (Auto) 2.0, Monocytes # (Auto) 0.9, Eosinophils # (Auto) 0.2, Basophils # (Auto) 0.0, Immature Granulocyte # (Auto) 0.0, Sodium Level 140, Potassium Level 4.2, Chloride Level 114H, Carbon Dioxide Level 21, Anion Gap 5, Blood Urea Nitrogen 22H, Creatinine 1.14, Estimat Glomerular Filtration Rate 50, BUN/Creatinine Ratio 19, Glucose Level 98, Calcium Level 7.8L, Corrected Calcium 8.5, Phosphorus Level 3.7, Magnesium Level 1.9, Total Bilirubin 0.4, Aspartate Amino Transf (AST/SGOT) 25, Alanine Aminotransferase (ALT/SGPT) 33, Alkaline Phosphatase 46, Total Protein 5.5L, Albumin 3.1L DORI OSCAR DO Dec 29, 2022 08:35
--- NOTE | 2022-12-29 09:30 | Tele-ICU Progress Note ---
Subjective Date Seen by a Provider: Dec 29, 2022 Subjective/Events-last exam This virtual visit was conducted using real time audio/video. Thank you for asking us to see this patient for critical care services due to elevated temp, tachycardia and hypotension. Rule out sepsis. Recent events:much improved. rectal temp 36.3 PMH:dementia, lives at assisted living. Air conditioning was not functioning. PE: Appears comfortable, pale. VSS. O2 sat 95% on RA HEENT: No obvious masses, adenopathy or JVD. Chest: clear to auscultation. CV: RRR S1 S2 No murmur or added sounds. Abd: Non-tender. Bowel sounds Y. : Unremarkable. Lo Y. OSTEOLOGIST/psychiatric: Grossly intact. No obvious focal findings. Extremities: No edema. Capillary refill < 3 seconds. Skin: unremarkable. Results:renal function normalized. Lactate normalized. CXR: Clear napier.. Available chart/ vitals / labs / images reviewed. Video assessment done using teleICU camera, rest of exam as per RN. A/P: Critical Care: critically ill patient. Much improved. Consider transfer back to facility. Discussed with RN Luann. Asked RN to reach out to eICU if any questions or concerns later. Time spent with patient/coordination of care with other health professionals (mins): 15 Sepsis Event Evaluation Height, Weight, BMI Height: '" Weight: lbs. oz. kg; 29.74 BMI Method: Focused Exam Lactate Level 12/28/22 08:45: Lactic Acid Level 2.06*H 12/28/22 10:46: Lactic Acid Level 0.73 Exam Exam Patient acknowledged, consented, and participated in this virtual visit which was conducted using real time audio/video Vital Signs Date Time Temp Pulse Resp B/P (MAP) Pulse Ox O2 Delivery O2 Flow Rate FiO2 12/29/22 09:00 36.3 66 137/71 (93) 92 Room Air 12/29/22 08:00 36.3 65 138/70 (92) 91 Room Air 12/29/22 07:50 36.8 12/29/22 07:48 91 Room Air 12/29/22 07:00 59 12/29/22 07:00 36.4 58 127/64 (85) 91 Room Air 12/29/22 06:00 36.4 60 129/64 (85) 92 Room Air 12/29/22 05:00 36.4 57 117/51 (73) 92 Room Air 12/29/22 04:00 36.3 57 122/65 (84) 93 Room Air 12/29/22 04:00 93 Room Air 12/29/22 03:00 36.5 58 101/55 (70) 92 Room Air 12/29/22 02:00 36.6 63 117/59 (78) 93 Room Air 12/29/22 01:00 60 12/29/22 01:00 36.6 60 112/62 (79) 94 Room Air 12/29/22 00:15 93 Room Air 12/29/22 00:00 36.5 60 108/56 (73) 93 Room Air 12/28/22 23:00 36.5 58 82/40 (54) 93 Room Air 12/28/22 22:00 36.6 57 108/54 (72) 94 Room Air 12/28/22 21:00 36.8 67 92/45 (61) 95 Room Air 12/28/22 20:00 36.8 12/28/22 20:00 36.8 68 102/61 (75) 92 Room Air 12/28/22 20:00 95 Room Air 12/28/22 19:00 36.8 64 113/56 (75) 95 Room Air 12/28/22 19:00 63 12/28/22 18:49 36.8 66 112/63 (79) 95 Room Air 12/28/22 18:00 66 92/83 (86) 95 Room Air 12/28/22 17:00 73 128/66 (86) 96 Room Air 12/28/22 16:00 64 111/55 (73) 95 Room Air 12/28/22 15:22 66 93 40 12/28/22 15:00 64 98/54 (69) 94 Room Air 12/28/22 14:30 66 93/51 (65) 93 Room Air 12/28/22 14:00 71 110/52 (89) 92 Room Air 12/28/22 13:52 Room Air 12/28/22 13:30 73 112/57 (75) 94 Room Air 12/28/22 13:05 73 12/28/22 13:00 76 105/53 (70) 91 Room Air 12/28/22 12:30 79 88/46 (60) 92 High Flow N/C 10.00 12/28/22 12:00 79 93/48 (63) 92 High Flow N/C 10.00 12/28/22 11:47 81 12/28/22 11:45 78 96/50 (65) 92 High Flow N/C 10.00 12/28/22 11:20 36.2 77 14 92/54 92 I & O 12/29/22 07:00 Intake Total 5120 ml Output Total 1000 ml Balance 4120 ml Height & Weight Height: '" Weight: lbs. oz. kg; 29.74 BMI Method: General Appearance: No Apparent Distress, WD/WN, Chronically ill HEENT: PERRL/EOMI, Normal ENT Inspection, Other (Dry oropharynx) Neck: Normal Inspection Respiratory: No Accessory Muscle Use, No Respiratory Distress, Crackles (Right base); No Wheezing Cardiovascular: No Edema, No Murmur, Tachycardia Capillary Refill: Less Than 3 Seconds Extremity: Normal Inspection, Non Tender Neurologic/Psychiatric: Alert, No Motor/Sensory Deficits, Normal Mood/Affect, Disoriented Results Lab Laboratory Tests 12/28/22 08:45 12/29/22 04:26 Assessment/Plan Assessment/Plan See free text. Critical Care: Critically Ill Patient YAMILETH GIBSON MD Dec 29, 2022 09:30
--- NOTE | 2022-12-29 12:11 | Discharge Summary ---
Diagnosis/Chief Complaint Date of Admission Dec 28, 2022 at 11:31 Date of Discharge Discharge Date: Dec 29, 2022 Discharge Diagnosis Assessment: Heat exposure Altered mental status Hypotension Dementia Acute kidney injury Hyperthermia Diabetes History of hypertension Plan: IV fluids ICU May need pressor therapy Monitor closely Hold home meds for hypertension Discharge Summary Discharge Physical Examination Allergies: Coded Allergies: No Known Drug Allergies (Unverified , 09/01/22) Vitals & I&Os Vital Signs Date Time Temp Pulse Resp B/P (MAP) Pulse Ox O2 Delivery O2 Flow Rate FiO2 12/29/22 16:23 12/29/22 15:37 36.6 12/29/22 12:00 94 Room Air 12/29/22 10:00 84 12/28/22 18:00 12/28/22 15:22 40 12/28/22 11:20 14 General Appearance: Alert, Cooperative Respiratory: Clear to Auscultation Neuro: Normal Gait Psych/Mental Status: Mental Status NL (Baseline) Hospital Course Was the Problem List Reviewed?: Yes Patient had an uneventful hospital course after she was admitted to the ICU for heat exposure and hypotension requiring IV fluid resuscitation and close monitoring. Apparently she was in her assisted living apartment and she had the heat on and it was 100 degrees in the room and she was very hypothermic and had altered mental status superimposed with dementia. Patient ultimately had hypo tension resolved and she and OT evaluated her to be back to baseline and acute kidney injury had improved with IV fluids back to baseline normal and she was discharged in improved condition. Labs (last 24 hrs) Laboratory Tests 12/28/22 08:45: White Blood Count 9.1, Red Blood Count 3.97, Hemoglobin 12.2, Hematocrit 37, Mean Corpuscular Volume 94, Mean Corpuscular Hemoglobin 31, Mean Corpuscular Hemoglobin Concent 33, Red Cell Distribution Width 13.2, Platelet Count 254, Mean Platelet Volume 10.8, Immature Granulocyte % (Auto) 0, Neutrophils (%) (Auto) 69, Lymphocytes (%) (Auto) 25, Monocytes (%) (Auto) 5, Eosinophils (%) (Auto) 0, Basophils (%) (Auto) 1, Neutrophils # (Auto) 6.3, Lymphocytes # (Auto) 2.3, Monocytes # (Auto) 0.5, Eosinophils # (Auto) 0.0, Basophils # (Auto) 0.1, Immature Granulocyte # (Auto) 0.0, Prothrombin Time 13.7, INR Comment 1.0, Activated Partial Thromboplast Time 26, Sodium Level 141, Potassium Level 4.5, Chloride Level 110H, Carbon Dioxide Level 20L, Anion Gap 11, Blood Urea Nitrogen 24H, Creatinine 2.03H, Estimat Glomerular Filtration Rate 25, BUN/Creatinine Ratio 12, Glucose Level 178H, Lactic Acid Level 2.06*H, Calcium Level 9.4, Corrected Calcium 9.2, Magnesium Level 2.2, Total Bilirubin 0.3, Aspartate Amino Transf (AST/SGOT) 29, Alanine Aminotransferase (ALT/SGPT) 31, Alkaline Phosphatase 63, Total Creatine Kinase 79, C-Reactive Protein High Sensitivity 0.05, Total Protein 7.7, Albumin 4.3 12/28/22 08:50: Glucometer 173H 12/28/22 09:00: Urine Color YELLOW, Urine Clarity CLEAR, Urine pH 8.0, Urine Specific [place] 1.015L, Urine Protein NEGATIVE, Urine Glucose (UA) NEGATIVE, Urine Ketones NEGATIVE, Urine Nitrite NEGATIVE, Urine Bilirubin NEGATIVE, Urine Urobilinogen 0.2, Urine Leukocyte Esterase NEGATIVE, Urine RBC (Auto) NEGATIVE, Urine RBC NONE, Urine WBC NONE, Urine Crystals NONE, Urine Bacteria NEGATIVE, Urine Casts NONE, Urine Mucus NEGATIVE, Urine Culture Indicated NO 12/28/22 10:46: Lactic Acid Level 0.73 12/29/22 04:26: White Blood Count 8.0, Red Blood Count 2.94L, Hemoglobin 9.0#L, Hematocrit 28L, Mean Corpuscular Volume 96, Mean Corpuscular Hemoglobin 31, Mean Corpuscular Hemoglobin Concent 32, Red Cell Distribution Width 13.5, Platelet Count 153, Mean Platelet Volume 11.0, Immature Granulocyte % (Auto) 0, Neutrophils (%) (Auto) 60, Lymphocytes (%) (Auto) 25, Monocytes (%) (Auto) 12, Eosinophils (%) (Auto) 2, Basophils (%) (Auto) 1, Neutrophils # (Auto) 4.8, Lymphocytes # (Auto) 2.0, Monocytes # (Auto) 0.9, Eosinophils # (Auto) 0.2, Basophils # (Auto) 0.0, Immature Granulocyte # (Auto) 0.0, Sodium Level 140, Potassium Level 4.2, Chloride Level 114H, Carbon Dioxide Level 21, Anion Gap 5, Blood Urea Nitrogen 22H, Creatinine 1.14, Estimat Glomerular Filtration Rate 50, BUN/Creatinine Ratio 19, Glucose Level 98, Calcium Level 7.8L, Corrected Calcium 8.5, Phosphorus Level 3.7, Magnesium Level 1.9, Total Bilirubin 0.4, Aspartate Amino Transf (AST/SGOT) 25, Alanine Aminotransferase (ALT/SGPT) 33, Alkaline Phosphatase 46, Total Protein 5.5L, Albumin 3.1L Microbiology 12/28/22 MRSA Screen - Final, Complete MRSA not isolated 12/28/22 Urine Culture - Final, Complete NO GROWTH 12/28/22 Blood Culture - Preliminary, Resulted No growth Pending Labs Microbiology Date/Time Source Procedure Growth Status 12/28/22 11:48 Nasal MRSA Screen - Final MRSA not isolated Complete 12/28/22 09:00 Urine U Cath,Nos Urine Culture - Final NO GROWTH Complete 12/28/22 08:50 Peripheral Left Wrist Blood Culture - Preliminary No growth Resulted 12/28/22 08:45 Peripheral Lt Ac Blood Culture - Preliminary No growth Resulted Laboratory Tests 12/28/22 08:45: White Blood Count 9.1, Red Blood Count 3.97, Hemoglobin 12.2, Hematocrit 37, Mean Corpuscular Volume 94, Mean Corpuscular Hemoglobin 31, Mean Corpuscular Hemoglobin Concent 33, Red Cell Distribution Width 13.2, Platelet Count 254, Mean Platelet Volume 10.8, Immature Granulocyte % (Auto) 0, Neutrophils (%) (Auto) 69, Lymphocytes (%) (Auto) 25, Monocytes (%) (Auto) 5, Eosinophils (%) (Auto) 0, Basophils (%) (Auto) 1, Neutrophils # (Auto) 6.3, Lymphocytes # (Auto) 2.3, Monocytes # (Auto) 0.5, Eosinophils # (Auto) 0.0, Basophils # (Auto) 0.1, Immature Granulocyte # (Auto) 0.0, Prothrombin Time 13.7, INR Comment 1.0, Activated Partial Thromboplast Time 26, Sodium Level 141, Potassium Level 4.5, Chloride Level 110, Carbon Dioxide Level 20, Anion Gap 11, Blood Urea Nitrogen 24, Creatinine 2.03, Estimat Glomerular Filtration Rate 25, BUN/Creatinine Ratio 12, Glucose Level 178, Lactic Acid Level 2.06, Calcium Level 9.4, Corrected Calcium 9.2, Magnesium Level 2.2, Total Bilirubin 0.3, Aspartate Amino Transf (AST/SGOT) 29, Alanine Aminotransferase (ALT/SGPT) 31, Alkaline Phosphatase 63, Total Creatine Kinase 79, C-Reactive Protein High Sensitivity 0.05, Total Protein 7.7, Albumin 4.3 12/28/22 08:50: Glucometer 173 12/28/22 09:00: Urine Color YELLOW, Urine Clarity CLEAR, Urine pH 8.0, Urine Specific [place] 1.015, Urine Protein NEGATIVE, Urine Glucose (UA) NEGATIVE, Urine Ketones NEGATIVE, Urine Nitrite NEGATIVE, Urine Bilirubin NEGATIVE, Urine Urobilinogen 0.2, Urine Leukocyte Esterase NEGATIVE, Urine RBC (Auto) NEGATIVE, Urine RBC NONE, Urine WBC NONE, Urine Crystals NONE, Urine Bacteria NEGATIVE, Urine Casts NONE, Urine Mucus NEGATIVE, Urine Culture Indicated NO 12/28/22 10:46: Lactic Acid Level 0.73 12/29/22 04:26: White Blood Count 8.0, Red Blood Count 2.94, Hemoglobin 9.0, Hematocrit 28, Mean Corpuscular Volume 96, Mean Corpuscular Hemoglobin 31, Mean Corpuscular Hemoglobin Concent 32, Red Cell Distribution Width 13.5, Platelet Count 153, Mean Platelet Volume 11.0, Immature Granulocyte % (Auto) 0, Neutrophils (%) (Auto) 60, Lymphocytes (%) (Auto) 25, Monocytes (%) (Auto) 12, Eosinophils (%) (Auto) 2, Basophils (%) (Auto) 1, Neutrophils # (Auto) 4.8, Lymphocytes # (Auto) 2.0, Monocytes # (Auto) 0.9, Eosinophils # (Auto) 0.2, Basophils # (Auto) 0.0, Immature Granulocyte # (Auto) 0.0, Sodium Level 140, Potassium Level 4.2, Chloride Level 114, Carbon Dioxide Level 21, Anion Gap 5, Blood Urea Nitrogen 22, Creatinine 1.14, Estimat Glomerular Filtration Rate 50, BUN/Creatinine Ratio 19, Glucose Level 98, Calcium Level 7.8, Corrected Calcium 8.5, Phosphorus Level 3.7, Magnesium Level 1.9, Total Bilirubin 0.4, Aspartate Amino Transf (AST/SGOT) 25, Alanine Aminotransferase (ALT/SGPT) 33, Alkaline Phosphatase 46, Total Protein 5.5, Albumin 3.1 Discharge Home Medications: Active Scripts Active Reported Tylenol Cold & Flu Severe Cplt (Phenylephrine/Dm/Acetaminop/GG) 5 Mg-10 Mg-325 Mg-200 Mg Tablet 2 Each PO Q4H PRN Systane Complete (Propylene Glycol) 0.6 % Drops 2 Drops OU BID Refresh Classic Eye Drops (Polyvinyl Alcohol/Povidone/Pf) 1.4 %-0.6 % Droperette 1 Each OU BID Ocusoft Lid Scrub (Eyelid Cleanser Combination #5) 1 Each Med..pad 1 Each TP BID Vitamin D3 (Cholecalciferol (Vitamin D3)) 50 Mcg (2000 Unit) Tablet 50 Mcg PO DAILY Centrum Silver Tablet (Multivit-Min/FA/Lycopene/Lut) 0.4 Mg-300 Mcg-250 Mcg Tablet 1 Each PO DAILY Lexapro (Escitalopram Oxalate) 10 Mg Tablet 10 Mg PO DAILY Trazodone HCl 100 Mg Tablet 100 Mg PO HS Memantine HCl 10 Mg Tablet 10 Mg PO BID Donepezil HCl 10 Mg Tablet 10 Mg PO DAILY Metoprolol Succinate 25 Mg Tab.er.24h 25 Mg PO DAILY Instructions to patient/family Please see electronic discharge instructions given to patient. DORI OSCAR DO Dec 29, 2022 12:11
--- NOTE | 2022-12-29 12:24 | Physical Therapy Evaluation ---
PT Evaluation-General Medical Diagnosis Admission Date Dec 28, 2022 at 11:31 Medical Diagnosis: acute kidney injury/hyperthermia due to heat Onset Date: Dec 28, 2022 Therapy Diagnosis Therapy Diagnosis: debility Precautions Precautions/Isolations: Fall Prevention, Standard Precautions Referral Physician: Owen Reason for Referral: Evaluation/Treatment Medical History Pertinent Medical History: DM, Dementia, HTN Current History EMS secondary to staff found patient unresponsive with no AC (apparently broken) at [place] Reviewed History: Yes Social History Home: Assisted Living Prior Prior Level of Function SCALE: Activities may be completed with or without assistive devices. 8-[id number] completes the activity by him/herself with no assistance from a helper. 5-Set-up or Clean-up Assistance-helper sets up or cleans up; patient completes activity. [place] assists only prior to or following the activity. 4-Supervision or Touching Assistance-helper provides verbal cues and/or touching/steadying and/or contact guard assistance as patient completes activity. Assistance may be provided throughout the activity or intermittently. 3-Partial/Moderate Assistance-helper does LESS THAN HALF the effort. [place] lifts, holds or supports trunk or limbs, but provides less than half the effort. 2-Substantial/Maximal Assistance-helper does MORE THAN HALF the effort. [place] lifts or holds trunk or limbs and provides more than half the effort. 9-Ietnfmmwy-cltorm does ALL the effort. Patient does none of the effort to complete the activity. Or, the assistance of 2 or more helpers is required for the patient to complete the activity. If activity was not attempted, code reason: 7-Patient Refused. 9-Not Applicable-not attempted and the patient did not perform the activity before the current illness, exacerbation or injury. 10-Not Attempted due to Environmental Limitations-(lack of equipment, weather restraints, etc.). 88-Not Attempted due to Medical Conditions or Safety Concerns. Bed Mobility: 6 Transfers (B,C,W/C): 6 Gait: 6 Indoor Mobility (Ambulation): Independent PT Evaluation-Current Subjective Patient agrees to therapy and OOB activity. Objective Patient Orientation: Confused Attachments: Lo Catheter ROM/Strength ROM Lower Extremities bilateral LE WFL Strength Lower Extremities 4/5 grossly bilateral LE all planes Integumentary/Posture Bladder Incontinence: Lo Cath Posture WFL Neuromuscular (Tone, Coordination, Reflexes) grossly intact Sensory Vision: Functional Hearing: Functional Transfers Lying to Sitting/Side of Bed(Q: 6 Sit to Stand (QC): 5 Chair/Rxj-wt-Jdiyc Xfer(QC): 5 Gait Mode of Locomotion: Walk Anticipated Mode of Locomotion: Walk Walk 10 feet (QC): 5 Walk 50 ft with 2 Turns(QC): 5 Walk 150 ft (QC): 5 Distance: 400' Gait Assistive Device: FWW Comments/Gait Description VC's for FWW use/functional gait sequence Balance Sitting Static: Normal Sitting Dynamic: Normal Standing Static: Normal Standing Dynamic: Normal Assessment/Needs Patient currently at [facility] with all gross motor skills safely and does not require skilled PT intervention at this time. Rehab Potential: Fair PT Plan Treatment/Plan Treatment Plan: Discontinue PT Treatment Duration: Dec 29, 2022 Frequency: 1 time per week Estimated Hrs Per Day: .25 hour per day Time Time In: 1210 Time Out: 1220 DATE: Dec 29, 2022 Total Billed Treatment Time: 10 Total Billed Treatment 1 visit EVMod 10 min NAVIN UMANA PT Dec 29, 2022 12:24
--- NOTE | 2022-12-29 15:15 | Occ Therapy Progress Note ---
Therapy Progress Note Per RN,SW and PT patient to return to [facility] today, no OT eval initiated TAMERA QUINTANA OT Dec 29, 2022 15:15
[2022-12-29] MEDS ORDERED: traZODone 100 MG (DESYREL) TAB PO SCH (21:00)
[2022-12-29] MEDS ORDERED: MEMANTINE 10 MG (NAMENDA) TABLET PO SCH (21:00)
[2022-12-30] MEDS ORDERED: DONEPEZIL 10 MG (ARICEPT) TAB PO SCH (09:00)
== END 2022-12-29 16:23 | disposition home or self-care (01) | DRG 923 ==
LOC: EDUNIT# 08:42 → ER 08:44 → ICU 11:31
PROVIDERS: ADMIT Internal Medicine; ATTEND Internal Medicine
PROC: 5A0935A Assistance with Respiratory Ventilation, Less than 24 Consecutive Hours, High Flow/Velocity Cannula (ICD-10-PCS; principal; 2022-12-28)
DX: T67.01XA Heatstroke and sunstroke, initial encounter (principal); N17.9 Acute kidney failure, unspecified; I95.9 Hypotension, unspecified; I10 Essential (primary) hypertension; F03.90 Unspecified dementia, unspecified severity, without behavioral disturbance, psychotic disturbance, mood disturbance, and anxiety; E11.9 Type 2 diabetes mellitus without complications; E86.1 Hypovolemia; E86.0 Dehydration; X16.XXXA Contact with hot heating appliances, radiators and pipes, initial encounter; Z79.899 Other long term (current) drug therapy; R00.0 Tachycardia, unspecified
CPT/HCPCS: 36415; 51702; 71045; 80053; 81000; 82550; 82947; 83605; 83735; 84100; 85025; 85610; 85730; 86141; 87040; 87081; 87088